=== PATIENT | female | born 1975 ===

== ENCOUNTER → 2016-12-26 | Outpatient (CLI) | payer BC ==
--- NOTE | 2016-12-26 11:54 | PCVCIMAG ---
APPROVED REPORT Study performed: 12/26/2016 10:44:43 EXAM: Comprehensive 2D, Doppler, and color-flow Echocardiogram Patient Location: Echo lab Status: routine BSA: 1.57 HR: 54 bpmBP: 106/64 mmHg Rhythm: Bradycardia Other Information Study Quality: Adequate Indications Murmur Palpitations 2D Dimensions LVEF(%): 68.21 (>50%) IVSd: 7.46 (7-11mm) LVDd: 46.73 mm PWd: 6.82 (7-11mm) LVDs: 28.96 (25-40mm) Left Atrium: 33.93 (27-40mm) Aortic Root: 26.19 mm LV Single Plane 4CH: 70.95 % LV Single Plane 2CH: 63.87 %Temple's LVEF: 67.41 % Biplane EF: 68.0 % Volumes Left Atrial Volume (Systole) Single Plane 4CH: 38.26 mLSingle Plane 2CH: 39.10 mL LA ESV Index: 26.00 mL/m2 Aortic Valve AoV Peak Ulises.: 1.66 m/s AO Peak Gr.: 11.02 mmHgLVOT Max P.83 mmHg LVOT Max V: 0.98 m/s Mitral Valve E/A Ratio: 2.6 MV Decel. Time: 272.26 ms MV E Max Ulises.: 0.87 m/s MV A Ulises.: 0.33 m/s IVRT: 79.58 ms Pulmonary Valve PV Peak Ulises.: 1.13 m/sPV Peak Gr.: 5.13 mmHg Pulmonary Vein P Vein S: 0.34 m/sP Vein A: 0.39 m/s P Vein D: 0.82 m/sP Vein A Dur.: 148.8 msec P Vein S/D Ratio: 0.41 Tricuspid Valve TR Peak Ulises.: 2.46 m/s TR Peak Gr.: 24.16 mmHg Left Ventricle The left ventricle is normal size. There is normal LV segmental wall motion. There is normal left ventricular wall thickness. Left ventricular systolic function is normal. The left ventricular ejection fraction is within the normal range. LVEF is 65%. The left ventricular diastolic function is normal. Right Ventricle The right ventricle is normal size. The right ventricular systolic function is normal. Atria The left atrium size is normal. The right atrium size is normal. Aortic Valve The aortic valve is normal in structure. No aortic regurgitation is present. There is no aortic valvular stenosis. Mitral Valve The mitral valve is normal in structure. Mild mitral regurgitation. No evidence of mitral valve stenosis. Tricuspid Valve The tricuspid valve is normal in structure. Mild tricuspid regurgitation with PAP of 31 mmHg. Pulmonic Valve The pulmonary valve is normal in structure. Mild pulmonic regurgitation. Great Vessels The aortic root is normal in size. IVC is normal in size and collapses with >50% inspiration Pericardium There is no pericardial effusion. <Conclusion> The left ventricle is normal size. LVEF is 65%. The left atrium size is normal. The aortic valve is normal in structure. Mild mitral regurgitation. The tricuspid valve is normal in structure. Mild tricuspid regurgitation with PAP of 31 mmHg. The aortic root is normal in size.
== END | disposition home or self-care (01) ==
LOC: PCVCIMAG 10:40
PROVIDERS: ATTEND Internal Medicine Cardiovascular Disease
DX: I34.0 Nonrheumatic mitral (valve) insufficiency (principal); I07.1 Rheumatic tricuspid insufficiency; I37.1 Nonrheumatic pulmonary valve insufficiency; R00.1 Bradycardia, unspecified
CPT/HCPCS: 93306